=== PATIENT | female | born 1980 | race Caucasian/White ===

== ENCOUNTER 2018-12-30 02:01 | Emergency (ER) | payer MEDICAID ==
[~2018-12-30] VITALS: Ht 160 cm; Wt 68.0 kg
--- NOTE | 2018-12-30 02:15 | NUR ---
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 PT ALSO C/O NAUSEA. DENIES DIARRHEA, VOMITTING, FEVER, DYSURIA. PT AAOX4. APPEARS UNCOMFORTABLE. VITAL SIGNS STABLE. ABLE TO AMBULATE WITH STEADY GAIT. PLACED IN GOWN AND ON MONITOR, WILL CONTINUE TO MONITOR
[2018-12-30] MEDS ORDERED: ONDANSETRON HCL/PF 4 MG/2 ML VIAL ONE (02:19)
[2018-12-30] MEDS ORDERED: MORPHINE SULFATE INJ 4 MG/ML DISP.SYRIN ONE (02:19)
--- NOTE | 2018-12-30 02:24 | NUR ---
PT MEDICATED ORDERED.
[2018-12-30 02:30] LABS: APPEARANCE,URINE Clear (CLEAR); BILIRUBIN,URINE Negative (NEGATIVE); BLOOD, URINE Moderate Ery/uL (NEGATIVE); COLOR,URINE Yellow (YELLOW); KETONES,URINE Negative (NEGATIVE); LEUKOCYTE ESTERASE ,URINE Moderate (NEGATIVE); NITRITE, URINE Negative (NEGATIVE); PROTEIN,URINE Negative (NEGATIVE); UGLUCOSE Negative (NEGATIVE); UROBILINOGEN,URINE 0.2 EU/dL (0.2)
[2018-12-30] MEDS ORDERED: ONDANSETRON HCL/PF 4 MG/2 ML VIAL IVP ONE (02:30)
[2018-12-30] MEDS ORDERED: IV NS 0.9% 1,000 ML BAG IV ONE ×2 (02:30)
[2018-12-30] MEDS ORDERED: MORPHINE SULFATE INJ 2 MG/ML DISP.SYRIN IV ONE ×2 (02:30→03:00)
[2018-12-30 02:41] LABS: BASOPHILS % (AUTO) 0.5 % (0.0-2.0); EOSINOPHILS % (AUTO) 1.4 % (0.0-6.0); HEMATOCRIT 40 % (33-45); HEMOGLOBIN 13.2 g/dL (11.5-14.8); LYMPHOCYTES % (AUTO) 32.9 % (20.0-44.0); MEAN CORPUSCULAR HGB CONC 33 g/dl (31.0-36.0); MEAN CORPUSCULAR VOLUME 88 fL (82-100); MONOCYTES # (AUTO) 0.7 /CMM (0.1-1.30); MONOCYTES % (AUTO) 7.9 % (2.0-12.0); NEUTROPHILS # (AUTO) 5.1 /CMM (1.8-8.9); NEUTROPHILS % (AUTO) 57.3 % (43.0-81.0); PLATELET COUNT (AUTO) 272 /CMM (150-450); RED BLOOD CELL COUNT(AUTO) 4.54 MIL/uL (4.0-5.2)
[2018-12-30 02:45] LABS: BACTERIA,URINE None seen /HPF (None Seen); SQUAMOUS EPITHELIAL CELL,UR Moderate /HPF (None Seen)
[2018-12-30 03:08] LABS: ALANINE AMINOTRANSFERASE 34 U/L (12-78); ALBUMIN 3.9 g/dL (3.4-5.0); ALKALINE PHOSPHATASE 70 U/L (46-116); ASPARTATE AMINOTRANSFERASE 27 U/L (15-37); BILIRUBIN,DIRECT 0.1 mg/dL (0.0-0.2); BILIRUBIN,TOTAL 0.2 mg/dL (0.2-1.0); CALCIUM, SERUM 9.1 mg/dL (8.5-10.1); CARBON DIOXIDE 25 mmol/L (21-32); CHLORIDE 104 mmol/L (98-107); CREATININE 0.7 mg/dL (0.6-1.3); GLUCOSE 104 mg/dL (74-106); LIPASE 95 U/L (73-393); POTASSIUM 3.6 mmol/L (3.5-5.1); SODIUM SERUM 139 mmol/L (136-145); TOTAL PROTEIN, SERUM 7.9 g/dL (6.4-8.2); UREA NITROGEN, BLOOD 12 mg/dL (7-18)
[2018-12-30] MEDS ORDERED: MORPHINE SULFATE INJ 2 MG/ML DISP.SYRIN ONE (03:13)
--- NOTE | 2018-12-30 03:17 | NUR ---
US AT BEDSIDE
--- NOTE | 2018-12-30 04:06 | NUR ---
Patient discharged to home in stable condition. Written and verbal after care instructions given. Patient verbalizes understanding of instruction.IV removed. Catheter intact and site benign. Pressure and 4x4 applied to site. No bleeding noted.Pt ambulatory with a steady gait. Instructed not to drive, pt verbalized understanding.
[2018-12-30 04:08] VITALS: BP 137/87
== END 2018-12-30 04:08 | disposition home or self-care (01) ==
LOC: ER 02:04
DX: K80.70 Calculus of gallbladder and bile duct without cholecystitis without obstruction (principal)
CPT/HCPCS: 36415; 76705; 80048; 80076; 81001; 83690; 84484; 84703; 85025; 85730; 87077; 87086; 93005; 96374; 96375; 96376; 99284; J2270 ×2; J2405; J7030; 81000-TC

== ENCOUNTER 2019-03-16 10:54 | Emergency (ER) | payer MEDICAID ==
[~2019-03-16] VITALS: Ht 157.5 cm; Wt 70.3 kg
--- NOTE | 2019-03-16 11:10 | NUR ---
"Flu like symptoms/cough/congestion x5days" Patient a/ox4, breathing even and unlabored, no sob noted. Needs attended.
--- NOTE | 2019-03-16 11:20 | NUR ---
INFLUENZA SWAB SENT TO LAB
[2019-03-16] MEDS ORDERED: ALBUTEROL FS 2.5 MG/3 ML VIAL.NEB ONE (12:13)
[2019-03-16] MEDS ORDERED: IPRATROPIUM NEB FS 0.5 MG/2.5 ML AMPUL.NEB ONE (12:13)
--- NOTE | 2019-03-16 12:25 | NUR ---
PTIENT RECEIVING A BREATHING TX AT THIS TIME.
[2019-03-16] MEDS ORDERED: IPRATROPIUM NEB FS 0.5 MG/2.5 ML AMPUL.NEB NEB ONE (12:30)
[2019-03-16] MEDS ORDERED: ALBUTEROL FS 2.5 MG/0.5 ML VIAL.NEB NEB ONE (12:30)
[2019-03-16] MEDS ORDERED: IBUPROFEN 600 MG TABLET PO ONE (13:34)
[2019-03-16 13:44] VITALS: BP 134/86
--- NOTE | 2019-03-16 13:44 | NUR ---
Patient discharged to home in stable condition. Written and verbal after care instructions given. Patient verbalizes understanding of instruction.
== END 2019-03-16 13:45 | disposition home or self-care (01) ==
LOC: ER 10:55
DX: J06.9 Acute upper respiratory infection, unspecified (principal)
CPT/HCPCS: 71045-TC

== ENCOUNTER 2019-03-19 20:40 | Emergency (ER) | payer MEDICAID ==
[~2019-03-19] VITALS: Ht 162.6 cm; Wt 74.4 kg
[2019-03-19] MEDS ORDERED: CEFTRIAXONE 1 G VIAL ONE (21:09)
[2019-03-19] MEDS ORDERED: KETOROLAC TROMETHAMINE INJ 30 MG/ML VIAL ONE (21:09)
[2019-03-19] MEDS ORDERED: ACETAMINOPHEN ES 500 MG TABLET ONE (21:21)
[2019-03-19] MEDS ORDERED: IV NS 0.9% 1,000 ML BAG IV ONE (21:30)
[2019-03-19] MEDS ORDERED: CEFTRIAXONE 1 G in IV D5W 50 ML IV ONE (21:30)
[2019-03-19] MEDS ORDERED: ACETAMINOPHEN ES 500 MG TABLET PO ONE (21:30)
[2019-03-19] MEDS ORDERED: KETOROLAC TROMETHAMINE INJ 30 MG/ML VIAL IV ONE (21:30)
--- NOTE | 2019-03-19 21:56 | NUR ---
Patient discharged to home in stable condition. Written and verbal after care instructions given. Patient verbalizes understanding of instruction.
[2019-03-19 21:58] VITALS: BP 141/89
== END 2019-03-19 21:58 | disposition home or self-care (01) ==
LOC: ER 20:41
DX: B34.9 Viral infection, unspecified (principal); R00.0 Tachycardia, unspecified
CPT/HCPCS: 71045; 96365; 96375; 99283; J0696 ×2; J1885; J7060

== ENCOUNTER 2019-10-31 18:26 | Emergency (ER) | payer MEDICAID ==
[~2019-10-31] VITALS: Ht 157.5 cm; Wt 68.5 kg
[2019-10-31 18:39] VITALS: BP 139/90
== END 2019-10-31 20:41 | disposition home or self-care (01) ==
LOC: ER 18:29
DX: U07.1 COVID-19 (principal); J12.89 Other viral pneumonia; Z87.09 Personal history of other diseases of the respiratory system
CPT/HCPCS: 71045-TC

== ENCOUNTER 2020-03-06 10:46 | Emergency (ER) | payer MEDICAID ==
[~2020-03-06] VITALS: Ht 157.5 cm; Wt 63.5 kg
--- NOTE | 2020-03-06 11:00 | NUR ---
patient came in to the er c/o left flank pain x 2 days. On room air, breathing evenly and unlabored. Kept comfortable, will continue to monitor accordingly.
--- NOTE | 2020-03-06 11:17 | NUR ---
urine collected and sent to lab
--- NOTE | 2020-03-06 11:17 | NUR ---
iv access initiated and blood drawned and sent to lab
[2020-03-06] MEDS ORDERED: ONDANSETRON HCL/PF 4 MG/2 ML VIAL IVP ONE (12:00)
[2020-03-06] MEDS ORDERED: KETOROLAC TROMETHAMINE INJ 30 MG/ML VIAL IV ONE (12:00)
[2020-03-06] MEDS ORDERED: MORPHINE SULFATE INJ 2 MG/ML DISP.SYRIN IV ONE (12:00)
[2020-03-06] MEDS ORDERED: IV NS 0.9% 1,000 ML BAG IV ONE (12:00)
[2020-03-06] MEDS ORDERED: MORPHINE SULFATE INJ 4 MG/ML DISP.SYRIN ONE (12:01)
[2020-03-06] MEDS ORDERED: ONDANSETRON HCL/PF 4 MG/2 ML VIAL ONE (12:01)
[2020-03-06 12:13] LABS: BILIRUBIN,URINE Negative (NEGATIVE); CALCIUM, SERUM 8.7 mg/dL (8.5-10.1); COLOR,URINE YELLOW (YELLOW); CREATININE 0.8 mg/dL (0.6-1.3); LEUKOCYTE ESTERASE ,URINE Negative (NEGATIVE); NITRITE, URINE Negative (NEGATIVE); PH,URINE 5.5 (5.0-8.0); POTASSIUM 3.5 mmol/L (3.5-5.1); PROTEIN,URINE Negative (NEGATIVE); UGLUCOSE Negative (NEGATIVE); UROBILINOGEN,URINE 0.2 EU/dL (0.2)
[2020-03-06 12:19] LABS: ALBUMIN 3.8 g/dL (3.4-5.0); BASOPHILS % (AUTO) 0.6 % (0.0-2.0); BILIRUBIN,DIRECT 0.1 mg/dL (0.0-0.2); BILIRUBIN,TOTAL 0.3 mg/dL (0.2-1.0); HEMATOCRIT 40 % (33-45); HEMOGLOBIN 13.2 g/dL (11.5-14.8); LYMPHOCYTES # (AUTO) 1.4 /CMM (0.8-4.8); LYMPHOCYTES % (AUTO) 16.4 % (20.0-44.0); MEAN CORPUSCULAR HGB CONC 33 g/dl (31.0-36.0); MEAN CORPUSCULAR VOLUME 86 fL (82-100); MONOCYTES # (AUTO) 0.5 /CMM (0.1-1.30); MONOCYTES % (AUTO) 6.4 % (2.0-12.0); NEUTROPHILS # (AUTO) 6.4 /CMM (1.8-8.9); NEUTROPHILS % (AUTO) 75.6 % (43.0-81.0); PLATELET COUNT (AUTO) 276 /CMM (150-450); WHITE BLOOD COUNT (AUTO) 8.5 K/uL (4.3-11.0)
[2020-03-06 12:33] LABS: BACTERIA,URINE Few /HPF (None Seen); SQUAMOUS EPITHELIAL CELL,UR Few /HPF (None Seen); WBC,URINE 0-2 /HPF (0-3)
[2020-03-06] MEDS ORDERED: KETOROLAC TROMETHAMINE 15 MG/ML VIAL ONE (12:39)
[2020-03-06 14:17] VITALS: BP 143/66
--- NOTE | 2020-03-06 14:18 | NUR ---
Patient discharged to home in stable condition. Written and verbal after care instructions given. Patient verbalizes understanding of instruction.IV removed. Catheter intact and site benign. Pressure and 4x4 applied to site. No bleeding noted.
== END 2020-03-06 14:18 | disposition home or self-care (01) ==
LOC: ER 10:49
DX: R10.9 Unspecified abdominal pain (principal); N83.201 Unspecified ovarian cyst, right side; Z87.19 Personal history of other diseases of the digestive system
CPT/HCPCS: 36415; 74176; 80048; 80076; 81001; 83690; 84703; 85025; 96361; 96374; 96375; 99284; J1885; J2270; J2405; J7030

== ENCOUNTER 2020-03-12 03:16 | Inpatient (IN) | payer MEDICAID ==
[~2020-03-12] VITALS: Ht 160 cm; Wt 70.3 kg
[2020-03-12] MEDS ORDERED: ONDANSETRON HCL/PF 4 MG/2 ML VIAL IVP ONE (03:30)
[2020-03-12] MEDS ORDERED: MORPHINE SULFATE INJ 2 MG/ML DISP.SYRIN IV ONE (03:30)
[2020-03-12] MEDS ORDERED: ONDANSETRON HCL/PF 4 MG/2 ML VIAL ONE (03:34)
[2020-03-12] MEDS ORDERED: MORPHINE SULFATE INJ 4 MG/ML DISP.SYRIN ONE (03:34)
--- NOTE | 2020-03-12 03:46 | NUR ---
PATIENT CAME TO ER BED 15 C/O RIGHT LOWER ABDOMINAL PAIN FOR 2x DAYS. PATIENT STATES THAT SHE IS NAUSEOUS. PATIENT IS AAOX4. NO SOB. BREATHING EVENLY AND UNLABORED ON ROOM AIR. CONNECTED TO THE MONITOR.
--- NOTE | 2020-03-12 03:47 | NUR ---
BLOOD COLLECTED AND SENT TO THE LAB.
[2020-03-12 03:53] LABS: BASOPHILS % (AUTO) 0.3 % (0.0-2.0); EOSINOPHILS % (AUTO) 0.7 % (0.0-6.0); HEMATOCRIT 39 % (33-45); HEMOGLOBIN 12.9 g/dL (11.5-14.8); LYMPHOCYTES # (AUTO) 1.4 /CMM (0.8-4.8); LYMPHOCYTES % (AUTO) 11.2 % (20.0-44.0); MEAN CORPUSCULAR HGB CONC 33 g/dl (31.0-36.0); MEAN CORPUSCULAR VOLUME 88 fL (82-100); MONOCYTES # (AUTO) 0.7 /CMM (0.1-1.30); MONOCYTES % (AUTO) 5.3 % (2.0-12.0); NEUTROPHILS # (AUTO) 10.5 /CMM (1.8-8.9); NEUTROPHILS % (AUTO) 82.5 % (43.0-81.0); PLATELET COUNT (AUTO) 248 /CMM (150-450); RED BLOOD CELL COUNT(AUTO) 4.42 MIL/uL (4.0-5.2); WHITE BLOOD COUNT (AUTO) 12.7 K/uL (4.3-11.0)
[2020-03-12 04:10] LABS: ALBUMIN 3.8 g/dL (3.4-5.0); BILIRUBIN,DIRECT 0.1 mg/dL (0.0-0.2); BILIRUBIN,TOTAL 0.4 mg/dL (0.2-1.0); CALCIUM, SERUM 8.7 mg/dL (8.5-10.1); CREATININE 0.9 mg/dL (0.6-1.3); POTASSIUM 3.2 mmol/L (3.5-5.1); TOTAL PROTEIN, SERUM 7.3 g/dL (6.4-8.2)
--- NOTE | 2020-03-12 04:19 | NUR ---
US AT BEDSIDE
--- NOTE | 2020-03-12 05:20 | NUR ---
CALLED FOR COVID SWAB
--- NOTE | 2020-03-12 05:28 | NUR ---
DR. CHAVEZ SPEAKING WITH JESUS LANG NP REGARDING ADMISSION
--- NOTE | 2020-03-12 05:28 | NUR ---
ALONDRAID SWABBED, SENT TO LAB.
--- NOTE | 2020-03-12 05:29 | NUR ---
DR. CHAVEZ SPEAKING WITH DR. MCKEON ([employer] CLERK SURGERY)
[2020-03-12] MEDS ORDERED: CIPROFLOXACIN IV RTU 400 MG in PREMIX 1 EA IV SCH ×2 (05:30→21:00)
[2020-03-12] MEDS ORDERED: MORPHINE SULFATE INJ 2 MG/ML DISP.SYRIN IV PRN (05:30)
[2020-03-12] MEDS ORDERED: MAGNESIUM HYDROXIDE 30 ML UDC PO PRN (05:30)
[2020-03-12] MEDS ORDERED: ONDANSETRON HCL/PF 4 MG/2 ML VIAL IVP PRN (05:30)
[2020-03-12] MEDS ORDERED: ACETAMINOPHEN 325 MG TABLET PO PRN (05:30)
[2020-03-12] MEDS ORDERED: FLAGYL/NS RTU 500 MG/100 ML PIGGYBACK IV ONE (05:30)
[2020-03-12] MEDS ORDERED: ZOLPIDEM TARTRATE 5 MG TABLET PO PRN (05:30)
[2020-03-12] MEDS ORDERED: CIPROFLOXACIN IV RTU 200 ML IV ONE (05:31)
[2020-03-12] MEDS ORDERED: METRONIDAZOLE 500MG/ NS 100ML 100 ML IV ONE ×2 (05:31→12:12)
[2020-03-12] MEDS: IV NS 0.9% 1,000 ML IV PRN ×2 (06:00→22:00)
--- NOTE | 2020-03-12 06:13 | NUR ---
NEGATIVE COVID RESULT.
[2020-03-12] MEDS ORDERED: HYDROCODONE/APAP 5/325MG TABLET ONE ×2 (10:45→17:30)
[2020-03-12] MEDS: HYDROCODONE/APAP 5/325MG TABLET PO PRN (10:48)
[2020-03-12] MEDS ORDERED: METRONIDAZOLE 500MG/ NS 100ML 500 MG in PREMIX 1 EA IV SCH (12:00)
--- NOTE | 2020-03-12 13:14 | NUR ---
KOJO HOPSON UNDER DR PACHECO AT BEDSIDE
--- NOTE | 2020-03-12 13:24 | NUR ---
RECEIVED VERBAL ORDER FROM KOJO HOPSON TO HAVE THE PATIENT TRY CLEAR LIQUIDS. PROVIDED PATIENT W APPLE JUICE. TOLERATED WELL.
--- NOTE | 2020-03-12 14:08 | NUR ---
EPISODE OF VOMITING NOTED. BETTING CLERKS EMILIANA AWARE. ORDER RECEIVED OF JUST ICED SCHIPS FOR NOW UFO.
[2020-03-12] MEDS ORDERED: POTASSIUM CL. PREMIX PERIPHER. 200 ML ONE (15:25)
[2020-03-12] MEDS: POTASSIUM CL. PREMIX PERIPHER. 50 ML IV SCH ×4 (15:30→19:00)
--- NOTE | 2020-03-12 15:58 | NUR ---
PATIENT AMBULATED W SLOW BUT STEADY GAIT GOING TO THE RESTROOM
--- NOTE | 2020-03-12 16:01 | NUR ---
PICKED UP BY [facility] [employer] FOR MRI Addendum: 03/12/20 at 1605 by WINNIE PICKED UP BY [employer] VIA WHEELCHAIR FOR MRI
--- NOTE | 2020-03-12 17:06 | NUR ---
BROUGHT BY RT VIA WHEELCHAIR BACK TO ROOM FROM MRI
[2020-03-12] MEDS ORDERED: PIPERACILLIN /TAZOBACTAM 3.375 G VIAL IV ONE (19:14)
[2020-03-12] MEDS: PIPERACILLIN /TAZOBACTAM 3.375 G in IV D5W 50 ML IV SCH (19:15)
--- NOTE | 2020-03-12 19:24 | NUR ---
REPORT GIVEN TO MAVERICK MURDOCK FOR JEREMY
--- NOTE | 2020-03-12 20:04 | NUR ---
PT AMBULATED TO THE RESTROOM AND BACK. VSS.
[2020-03-13] MEDS ORDERED: PIPERACILLIN /TAZOBACTAM 3.375 G VIAL IV ONE ×3 (00:01→14:41)
[2020-03-13] MEDS: PIPERACILLIN /TAZOBACTAM 3.375 G in IV D5W 50 ML IV SCH ×3 (00:08→14:42)
--- NOTE | 2020-03-13 00:34 | NUR ---
PT RESTING COMFORTABLY. VSS.
--- NOTE | 2020-03-13 03:08 | NUR ---
AMBULATED TO THE RESTROOM AND BACK.
[2020-03-13 06:12] LABS: BASOPHILS % (AUTO) 0.3 % (0.0-2.0); EOSINOPHILS % (AUTO) 0.1 % (0.0-6.0); HEMATOCRIT 36 % (33-45); HEMOGLOBIN 11.9 g/dL (11.5-14.8); LYMPHOCYTES # (AUTO) 0.8 /CMM (0.8-4.8); LYMPHOCYTES % (AUTO) 9.1 % (20.0-44.0); MEAN CORPUSCULAR HGB CONC 33 g/dl (31.0-36.0); MEAN CORPUSCULAR VOLUME 89 fL (82-100); MONOCYTES # (AUTO) 0.6 /CMM (0.1-1.30); MONOCYTES % (AUTO) 7.1 % (2.0-12.0); NEUTROPHILS # (AUTO) 7.6 /CMM (1.8-8.9); NEUTROPHILS % (AUTO) 83.4 % (43.0-81.0); PLATELET COUNT (AUTO) 201 /CMM (150-450); WHITE BLOOD COUNT (AUTO) 9.1 K/uL (4.3-11.0)
[2020-03-13 06:17] LABS: CALCIUM, SERUM 8.6 mg/dL (8.5-10.1); CREATININE 0.7 mg/dL (0.6-1.3); POTASSIUM 3.5 mmol/L (3.5-5.1)
--- NOTE | 2020-03-13 06:57 | NUR ---
PT AWAKE C/O HEADACHE.
[2020-03-13] MEDS: HYDROCODONE/APAP 5/325MG TABLET PO PRN ×2 (06:59→17:25)
[2020-03-13] MEDS ORDERED: HYDROCODONE/APAP 5/325MG TABLET ONE ×2 (06:59→17:19)
--- NOTE | 2020-03-13 07:23 | NUR ---
REPORT GIVEN TO KANU MURDOCK FOR JEREMY
[2020-03-13] MEDS ORDERED: IBUP-1955 PO (13:01)
[2020-03-13] MEDS ORDERED: PANT40TA2 PO (13:01)
[2020-03-13] MEDS ORDERED: CIPR500T5 PO (13:01)
[2020-03-13] MEDS ORDERED: K PHOS NEUTRAL 250 MG TABLET PO ONE (16:00)
[2020-03-13] MEDS ORDERED: K PHOS NEUTRAL 250 MG TABLET ONE (17:19)
--- NOTE | 2020-03-13 17:34 | NUR ---
IV removed. Catheter intact and site benign. Pressure and 4x4 applied to site. No bleeding noted.
--- NOTE | 2020-03-13 17:36 | NUR ---
Patient discharged to home in stable condition. Written and verbal after care instructions given. Patient verbalizes understanding of instruction. Ambulatory upon discharge. All belongings brought by patient
--- NOTE | 2020-03-13 17:53 | NUR ---
called pts preferred pharmacy on file to confirm is prescriptions has been sent over, per [facility] already have it since since this morning.
[2020-03-13 18:34] VITALS: BP 132/68
== END 2020-03-13 17:30 | disposition home or self-care (01) ==
LOC: ER 03:18 → TRANSITION 06:08
PROVIDERS: ADMIT Nurse Practitioner Acute Care; ATTEND Nurse Practitioner Acute Care
DX: K80.20 Calculus of gallbladder without cholecystitis without obstruction (principal); D72.829 Elevated white blood cell count, unspecified; E87.6 Hypokalemia
CPT/HCPCS: 36415; 74181-TC; 76705-TC; 80048-TC; 80061-TC; 80076-TC; 83690-TC; 83735-TC; 84100-TC; 85025-TC; 87081-TC; A4216; G0378; J0744; J2270; J2405; J2543; J3480; J7030; J7060

== ENCOUNTER 2024-05-26 22:22 | Emergency (ER) | payer MEDICAID, OTHER ==
[~2024-05-26] VITALS: Ht 160 cm; Wt 70.3 kg
[~2024-05-26 22:22] MED LIST: CIPR500T5 PO; IBUP-1955 PO; PANT40TA2 PO
[2024-05-26 22:32] VITALS: BP 100/64; TEMP 99.1; O2SAT 98
[2024-05-26] MEDS: ONDANSETRON HCL/PF - ER 4 MG/2 ML VIAL IV ONE (23:50)
[2024-05-26] MEDS: MORPHINE SULFATE INJ 2 MG/ML DISP.SYRIN IV ONE (23:50)
== END 2024-05-27 00:02 | disposition left against medical advice (07) ==
LOC: ER 22:24
DX: R06.02 Shortness of breath (principal); Z79.899 Other long term (current) drug therapy; Z53.21 Procedure and treatment not carried out due to patient leaving prior to being seen by health care provider
CPT/HCPCS: J2405